=== PATIENT | female | born 1975 | race Caucasian/White ===

== ENCOUNTER 2016-10-17 17:19 | Emergency (ER) | payer BC ==
[2016-10-17 17:38] VITALS: RESP 18; TEMP 98
[2016-10-17] MEDS ORDERED: KETOROLAC TROMETHAMINE 30 MG/ML SOL IV ONE (18:12)
[2016-10-17] MEDS ORDERED: ONDANSETRON HCL 4 MG/2 ML SOL IV ONE (18:15)
[2016-10-17] MEDS ORDERED: SODIUM CHLORIDE 0.9% 1000 ML SOL IV SCH (18:15)
[2016-10-17] MEDS ORDERED: PROMETHAZINE HYDROCHLORIDE 25 MG/ML SOL IV ONE (18:22)
[2016-10-17] MEDS ORDERED: ONDANSETRON HCL 4 MG/2 ML SOL ONE (18:30)
[2016-10-17] MEDS ORDERED: PROMETHAZINE HYDROCHLORIDE 25 MG/ML SOL ONE (18:30)
[2016-10-17] MEDS ORDERED: KETOROLAC TROMETHAMINE 30 MG/ML SOL ONE ×2 (18:30→18:34)
[2016-10-17] MEDS ORDERED: SODIUM CHLORIDE 0.9% FLUSH 10 ML SOL IV PRN (18:42)
[2016-10-17 18:52] LABS: BASOPHILS % (AUTO) 1 % (0-3); EOSINOPHILS % (AUTO) 2 % (0-9); HEMATOCRIT 38 % (35-47); MEAN CORPUSCULAR HGB CONC 34.5 gm/dl (32.0-36.0); MONOCYTES % (AUTO) 6.8 % (0-12); NEUTROPHILS % (AUTO) 56.5 % (37-80)
[2016-10-17 18:59] LABS: CALCIUM 8.3 mg/dl (8.5-10.1); POTASSIUM 3.9 mMol/L (3.5-5.1)
[2016-10-17 19:10] VITALS: O2SAT 98
[2016-10-17] MEDS ORDERED: HYDROMORPHONE HCL 2 MG/ML 1 ML SOL IV ONE (19:18)
[2016-10-17] MEDS ORDERED: SOLUMEDROL 125 MG/2 ML 125 MG/2 ML PDS IV ONE (19:18)
[2016-10-17] MEDS ORDERED: HYDROMORPHONE HCL 2 MG/ML 1 ML SOL ONE (19:21)
[2016-10-17] MEDS ORDERED: SOLUMEDROL 125 MG/2 ML 125 MG/2 ML PDS ONE (19:21)
[2016-10-17 20:32] VITALS: BP 149/94; PULSE 107
== END 2016-10-17 20:18 | disposition home or self-care (01) ==
LOC: ED 17:19
DX: G43.909 Migraine, unspecified, not intractable, without status migrainosus (principal)
CPT/HCPCS: 36415; 80048; 85025; 99285 ×2; J1170; J1885 ×2; J2405; J2550; J2930; 96365; 96374; 96375; 99284

== ENCOUNTER 2017-04-04 16:07 | Emergency (ER) | payer BC ==
[2017-04-04 16:29] VITALS: BP 126/76; PULSE 118; RESP 16; TEMP 97.3; O2SAT 99
[2017-04-04 16:54] LABS: APPEARANCE,URINE Slightly Cloudy; BILIRUBIN,URINE NEGATIVE (NEGATIVE); COLOR,URINE Yellow; GLUCOSE, URINE (UA) NEGATIVE (NEGATIVE); KETONES,URINE NEGATIVE (NEGATIVE); LEUKOCYTE ESTERASE ,URINE 1+ (NEGATIVE); NITRATE,URINE NEGATIVE (NEGATIVE); OCCULT BLOOD,URINE 2+ (NEG-TRACE); PH,URINE 5.5; UROBILINOGEN,URINE 0.2 (0.2-1.0 EU)
[2017-04-04 17:22] LABS: RBC,URINE 20-30 (0-3AV/HPF); WBC,URINE 60-70 (0-5AV/HPF)
== END 2017-04-04 17:35 | disposition home or self-care (01) ==
LOC: ED 16:07
DX: N39.0 Urinary tract infection, site not specified (principal)
CPT/HCPCS: 81001; 87088; 99282; 99283

== ENCOUNTER 2017-06-15 09:38 | Emergency (ER) | payer BC ==
[2017-06-15 09:55] VITALS: RESP 20; TEMP 97.3
[2017-06-15] MEDS ORDERED: PROCHLORPERAZINE EDISYLATE 5 MG/ML SOL IV ONE (10:03)
[2017-06-15] MEDS ORDERED: KETOROLAC TROMETHAMINE 30 MG/ML SOL IV ONE (10:03)
[2017-06-15] MEDS ORDERED: SODIUM CHLORIDE 0.9% 1000ML 1,000 ML IV ONE (10:04)
[2017-06-15] MEDS ORDERED: DIPHENHYDRAMINE 50 MG/ML SOL IV ONE (10:04)
[2017-06-15] MEDS ORDERED: KETOROLAC TROMETHAMINE 30 MG/ML SOL ONE (10:10)
[2017-06-15] MEDS ORDERED: KETOROLAC TROMETHAMINE 30 MG/ML SOL IM ONE (10:15)
[2017-06-15] MEDS: SODIUM CHLORIDE 0.9% FLUSH 10 ML SOL IV PRN ×2 (11:00→11:10)
[2017-06-15] MEDS ORDERED: DIPHENHYDRAMINE 50 MG/ML SOL ONE (11:02)
[2017-06-15] MEDS ORDERED: PROCHLORPERAZINE EDISYLATE 5 MG/ML SOL ONE (11:02)
[2017-06-15] MEDS ORDERED: HYDROMORPHONE 1 MG/ML SYRINGE IV ONE (11:33)
[2017-06-15] MEDS ORDERED: HYDROMORPHONE 1 MG/ML SYRINGE ONE (11:35)
[2017-06-15 13:07] VITALS: BP 131/85; PULSE 68; O2SAT 99
== END 2017-06-15 12:42 | disposition home or self-care (01) ==
LOC: ED 09:38
DX: G43.909 Migraine, unspecified, not intractable, without status migrainosus (principal)
CPT/HCPCS: 99285 ×2; J0780; J1170; J1200; J1885

== ENCOUNTER 2017-07-06 13:03 | Outpatient (CLI) | payer BC ==
[2017-06-15 13:07] VITALS: O2SAT 99
== END 2017-07-06 13:04 | disposition home or self-care (01) ==
LOC: CONVCARE 13:03
PROVIDERS: ATTEND Orthopaedic Surgery
DX: M75.01 Adhesive capsulitis of right shoulder (principal)
CPT/HCPCS: 73030

== ENCOUNTER 2017-07-27 10:00 | Outpatient (CLI) | payer BC ==
[2017-06-15 13:07] VITALS: O2SAT 99
== END 2017-07-27 10:01 | disposition home or self-care (01) ==
LOC: CONVCARE 10:00
PROVIDERS: ATTEND Orthopaedic Surgery
DX: M25.511 Pain in right shoulder (principal)

== ENCOUNTER 2017-12-16 13:05 | Emergency (ER) | payer BC ==
[2017-12-16] MEDS ORDERED: KETOROLAC TROMETHAMINE 30 MG/ML SOL IV ONE (13:22)
[2017-12-16] MEDS ORDERED: SODIUM CHLORIDE 0.9% 1000ML 1,000 ML IV ONE (13:22)
[2017-12-16] MEDS ORDERED: DIPHENHYDRAMINE 50 MG/ML SOL IV ONE (13:22)
[2017-12-16] MEDS ORDERED: PROCHLORPERAZINE EDISYLATE 5 MG/ML SOL IV ONE (13:22)
[2017-12-16] MEDS ORDERED: DIPHENHYDRAMINE 50 MG/ML SOL ONE (13:31)
[2017-12-16] MEDS ORDERED: KETOROLAC TROMETHAMINE 30 MG/ML SOL ONE (13:31)
[2017-12-16] MEDS ORDERED: PROCHLORPERAZINE EDISYLATE 5 MG/ML SOL ONE (13:32)
[2017-12-16 14:14] VITALS: O2SAT 99
[2017-12-16] MEDS ORDERED: HYDROMORPHONE 1 MG/ML SYRINGE IV ONE (14:25)
[2017-12-16] MEDS ORDERED: HYDROMORPHONE HCL 2 MG/ML SOL ONE (14:26)
[2017-12-16 15:20] VITALS: BP 106/74; PULSE 96; RESP 20; TEMP 97.5
== END 2017-12-16 15:02 | disposition home or self-care (01) ==
LOC: ED 13:05
DX: G43.009 Migraine without aura, not intractable, without status migrainosus (principal)
CPT/HCPCS: 96365; 96374; 96375; 99284; 99285; J0780; J1170; J1200; J1885

== ENCOUNTER 2018-11-14 15:12 | Emergency (ER) | payer MEDICARE, BC ==
[2018-11-14] MEDS ORDERED: ONDANSETRON HCL 4 MG/2 ML SOL IV ONE (17:15)
[2018-11-14] MEDS ORDERED: DIPHENHYDRAMINE 50 MG/ML SOL IV ONE (17:15)
[2018-11-14] MEDS ORDERED: SODIUM CHLORIDE 0.9% 1000 ML SOL IV SCH (17:15)
[2018-11-14] MEDS ORDERED: HYDROMORPHONE 1 MG/ML SYRINGE IV PRN (17:15)
[2018-11-14] MEDS ORDERED: ONDANSETRON HCL 4 MG/2 ML SOL ONE (17:18)
[2018-11-14] MEDS ORDERED: DIPHENHYDRAMINE 50 MG/ML SOL ONE (17:18)
[2018-11-14] MEDS ORDERED: HYDROMORPHONE 1 MG/ML SYRINGE ONE ×2 (17:18→20:19)
[2018-11-14] MEDS ORDERED: SODIUM CHLORIDE 0.9% 1000ML 1,000 ML IV ONE (18:30)
[2018-11-14 19:25] VITALS: RESP 16
[2018-11-14] MEDS ORDERED: HYDROMORPHONE HCL 2 MG/ML SOL IM ONE (20:00)
[2018-11-14] MEDS ORDERED: HYDROMORPHONE HCL 2 MG/ML SOL IV ONE (20:13)
[2018-11-14 21:15] VITALS: BP 130/88; PULSE 85; TEMP 98; O2SAT 98
== END 2018-11-14 21:50 | disposition home or self-care (01) | DRG 103 ==
LOC: ED 15:12
DX: G43.009 Migraine without aura, not intractable, without status migrainosus (principal)
CPT/HCPCS: 96365; 96366; 96374; 96375; 99282; 99285; J1200; J2405; J1170

== ENCOUNTER 2019-01-21 17:21 | Emergency (ER) | payer MEDICARE, BC ==
[2019-01-21] MEDS ORDERED: KETOROLAC TROMETHAMINE 30 MG/ML SOL IV ONE (17:50)
[2019-01-21] MEDS ORDERED: HYDROMORPHONE 1 MG/ML SYRINGE IV ONE ×2 (17:50→19:18)
[2019-01-21] MEDS ORDERED: METOCLOPRAMIDE HYDROCHLORIDE 5 MG/ML SOL IV ONE (17:50)
[2019-01-21] MEDS: SODIUM CHLORIDE 0.9% FLUSH 10 ML SOL IV PRN ×2 (18:35→19:27)
[2019-01-21] MEDS ORDERED: METOCLOPRAMIDE HYDROCHLORIDE 5 MG/ML SOL ONE (18:37)
[2019-01-21] MEDS ORDERED: KETOROLAC TROMETHAMINE 30 MG/ML SOL ONE (18:37)
[2019-01-21] MEDS ORDERED: HYDROMORPHONE 1 MG/ML SYRINGE ONE ×2 (18:37→19:20)
[2019-01-21] MEDS ORDERED: SODIUM CHLORIDE 0.9% 1000ML 1,000 ML IV ONE (18:38)
[2019-01-21 20:42] VITALS: RESP 18; TEMP 96.4; O2SAT 100
[2019-01-21 21:41] VITALS: BP 112/85; PULSE 84
== END 2019-01-21 20:27 | disposition home or self-care (01) | DRG 103 ==
LOC: ED 17:21
DX: G43.109 Migraine with aura, not intractable, without status migrainosus (principal)
CPT/HCPCS: 96365; 96374; 96375; 99283; 99285; J1885; J2765; J1170